=== PATIENT | female | born 1990 | race Two or more races ===

== ENCOUNTER 2025-01-25 20:25 | Emergency (ER) | payer MEDICAID, SELFPAY ==
[2025-01-25 20:26] VITALS: BMI 41.5
[2025-01-25 21:07] VITALS: BP 120/79; PULSE 85; RESP 18; TEMP 37.2; O2SAT 98
--- NOTE | 2025-01-25 21:11 | EDRME_ITS ---
Rapid Medical Screening Exam RME Arrival date/time: 01/25/25 20:25 Chief Complaint: Urogenital-Female Time Seen by Provider: 01/25/25 21:03 Vital signs: Vital Signs Temperature 98.9 F 01/25/25 21:07 Pulse Rate 85 01/25/25 21:07 Respiratory Rate 18 01/25/25 21:07 Blood Pressure 120/79 01/25/25 21:07 Pulse Oximetry (%) 98 01/25/25 21:07 Oxygen Delivery Method Room Air 01/25/25 21:07 [facility] Narrative: Dysuria, lower abdominal pain x 1 week. History of colovesical fistula
[2025-01-25 21:56] LABS: Basophils % (Auto) 0 % (0-2.5); Eosinophils # (Auto) 0.1 Thou/mm3 (0.0-0.5); Eosinophils % (Auto) 1 % (0-10); Hematocrit 33.8 % (36.0-46.0); Hemoglobin 11.5 g/dL (12.0-16.0); Immature Granulocytes % (Auto) 0 % (0-0); Immature Granulocytes Auto 0.02 Thou/mm3 (0.00-0.00); Lymphocytes # (Auto) 2.4 Thou/mm3 (1.0-4.8); Lymphocytes % (Auto) 26 % (10-50); Mean Corpuscular Volume 85 fL (80-100); Monocytes # (Auto) 0.6 Thou/mm3 (0.0-0.8); Monocytes % (Auto) 6 % (0-12); Neutrophils # (Auto) 6.1 Thou/mm3 (1.8-7.7); Neutrophils % (Auto) 66 % (37-80); Nucleated Red Blood Cell % 0 /100 WBC (0); Platelet Count 233 Thou/mm3 (140-440); RDW Standard Deviation 37.2 fL (36.4-46.3); Red Blood Count 3.96 Miln/mm3 (4.00-5.20); White Blood Count 9.2 Thou/mm3 (3.6-11.0)
[2025-01-25 22:05] LABS: Collection Type, Urine Clean Catch
[2025-01-25 22:09] LABS: Bilirubin,Urine Negative (Negative); Blood,Urine 3+ (Negative); Clarity,Urine Clear (Clear/Hazy); Color,Urine Lt-Yellow (Lt Yel-Yel); Glucose, Urine Negative (Negative); Ketones,Urine Negative (Negative); Leukocyte Esterase,Urine Positive (Negative); Nitrite,Urine Negative (Negative); PH,Urine 7.5 (5.0-7.0); Protein,Urine Trace (Neg - Trace); RBC,Urine 191 /hpf (0-3); Specific Gravity,Urine 1.024 (1.001-1.035); Squamous Epithelial Cell,Urine 1 /hpf (0-5); WBC,Urine 99 /hpf (0-5)
[2025-01-25 22:11] LABS: Alanine Aminotransferase < 7 U/L (10-49); Albumin, Serum 4.1 gm/dL (3.5-5.0); Albumin/Globulin Ratio 1.4 (1.2-2.2); Alkaline Phosphatase 80 U/L (46-116); Anion Gap 8 (7-16); Aspartate Amino Transferase 11 U/L (0-34); BUN/Creatinine Ratio 18 Ratio (12-20); Bilirubin,Total 0.4 mg/dL (0.3-1.2); Blood Urea Nitrogen 11 mg/dL (9-23); Calcium 8.7 mg/dL (8.3-10.6); Calcium (Corrected) 8.7 mg/dL (8.5-10.1); Chloride 105 mMol/L (98-107); Creatinine (Component) 0.6 mg/dL (0.6-1.3); Glucose 99 mg/dL (74-106); Lipase 31 U/L (12-53); Osmolality,Calculated 280 (275-295); Potassium 4.2 mMol/L (3.4-5.1); Sodium 141 mMol/L (136-145); Total Protein 7.1 gm/dL (5.7-8.2); eGFR > 60 See Note
[2025-01-25 22:11] LABS: HCG Qualitative,Urine Negative
--- NOTE | 2025-01-25 22:17 | XR_ITS ---
Examination: CT abdomen and pelvis without contrast. Coronal 3-D reconstructions. Sagittal 2-D reconstructions. Date and time of exam:January 26, 2025 0009 hours INDICATIONS: Onset lower abdominal pain today COMPARISON: June 26, 2024 CTDI: vol (mGy): 22.4 DLP: (mGycm): 1306 Technique: Axial images of the abdomen have been obtained, 3 mm slice thickness Intravenous contrast material has not been administered. Low dose protocols were performed. One or more of the following dose reduction techniques were used; automated exposure control, adjustment of the mA and/or KV according to patient size, use of iterative reconstruction technique. 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
--- NOTE | 2025-01-26 01:18 | PRELIM_ITS ---
CT scan of the abdomen and pelvis without intravenous contrast (axial sections with sagittal and coronal reformats). January 26, 2025 at 0009 hours Clinical History: Dysuria, flank pain Comparison: None Findings: Gallbladder is surgically absent. The unenhanced liver, spleen, pancreas, adrenals and kidneys are unremarkable. Follicular changes suggested in the left ovary. There are small moderate free dependent pelvic fluid which may be physiologic. There is circumferential urine bladder wall thickening which may be due to suboptimal distention. There is a urachal remnant extending from the superior aspect of the urinary bladder to the umbilicus, this may represent a urachal sinus. There is underdistention of the stomach which limits evaluation. There is postoperative change in stomach. Small hiatus hernia suggested. There are colonic diverticula without evidence of diverticulitis. Appendix is normal. There is no free intraperitoneal air. There is no abdominal or pelvic lymphadenopathy. Visualized lung bases are clear. There is no acute osseous abnormality. Impression: 1. Possible cystitis. Urachal remnant extending from the superior aspect of the urinary bladder to the umbilicus, this may represent a urachal sinus. Recommend outpatient urology follow-up. 2. Small hiatus hernia. 3. Colonic diverticula without evidence of diverticulitis. Normal appendix. Report Electronically Signed By: Beto Toney 01/26/2025 1:17:48 AM [EST]
--- NOTE | 2025-01-26 02:52 | PD.EDFMALE ---
ED Female Urogenital RME/HPI General Chief complaint: Urogenital-Female Stated complaint: BLADDER PAIN Time Seen by Provider: 01/25/25 21:03 Arrival date/time: 01/25/25 20:25 RME / HPI RME / HPI Narrative: The patient is a 34-year-old female with significant past medical history of multiple episodes of MDR UTI presented to ED with chief complaint of lower abdominal pain, and severe burning pain on micturition with frequency and urgency for about 1 week. The patient saw her PCP yesterday, and was prescribed Macrobid, but she received a call from pharmacy regarding Macrobid being resistant to her urine bug. She evaluated chills, nausea, but denied any headache, lightheadedness, sore throat, chest pain, SOB, any changes in bowel habit, or leg swelling. Related Data Previous Rx's ?Medication ?Instructions ?Recorded tetracycline 500 mg capsule 500 mg PO Q6H Pelvic abscess #40 02/27/22 caps tetracycline 500 mg capsule 500 mg PO Q6H #120 caps 03/09/22 doxycycline hyclate 100 mg capsule 100 mg PO BID #20 caps 07/29/22 ondansetron 4 mg disintegrating 4 mg PO Q8H PRN nausea and 04/29/23 tablet vomiting #10 tabs ciprofloxacin HCl 500 mg tablet 500 mg PO BID #20 tabs 07/15/23 ibuprofen 800 mg tablet 800 mg PO Q8H PRN pain #30 tabs 07/15/23 metronidazole 500 mg tablet 500 mg PO BID #20 tabs 07/15/23 naproxen 500 mg tablet (Naprosyn) 500 mg PO BID PRN pain #30 tabs 01/27/24 ondansetron 4 mg disintegrating 4 mg PO Q6H PRN nausea and 01/27/24 tablet vomiting #10 tabs nitrofurantoin 100 mg PO BID #20 caps 06/27/24 monohydrate/macrocrystals 100 mg capsule (Macrobid) doxycycline hyclate 100 mg tablet 100 mg PO BID #13 tabs 01/26/25 phenazopyridine 100 mg tablet 100 mg PO TID PRN pain #20 tabs 01/26/25 (Pyridium) Allergies Allergy/AdvReac Type Severity Reaction Status Date / Time metronidazole Allergy Intermediate itching Verified 06/26/24 18:32 piperacillin (From Zosyn) Allergy Intermediate Hives Verified 06/26/24 18:32 amoxicillin (From Augmentin) Allergy Verified 06/26/24 18:32 clavulanic acid (From Allergy Verified 06/26/24 18:32 Augmentin) tazobactam (From Zosyn) Allergy Verified 06/26/24 18:32 Review of Systems Review of Systems Systems Reviewed: All systems reviewed, normal except as documented Past Medical History Past Medical History CARDIAC: Negative Cardiac Disorders or Congestive Heart Failure RESPIRATORY: Positive Asthma GASTROINTESTINAL: Positive Gastrointestinal Disorders, Pancreatitis, Gall Bladder Disease, Diverticulitis, Diverticulosis and Obesity; Negative Hepatitis REPRODUCTIVE: Positive Previous Pregnancies ENT: Negative Cataracts ENDOCRINE: Negative Endocrine Disorders, Diabetes Mellitus Type 1 or Diabetes Mellitus Type 2 HEMATOLOGIC: Negative Blood Disorders, Anemia, Leukemia, Hemophilia, Thalassemia, Sickle Cell Disease or Clotting Problems OTHER HISTORY: Positive Hospitalization Family History FAMILY HISTORY: Positive Family Respiratory Disorders Surgical History SURGICAL: Positive Abdominal Surgery Social History SMOKING STATUS: Never smoker SUBSTANCE USE: does not use ED Exam Narrative Physical exam: General: No acute distress, Alert and Oriented x 3 HEENT: Moist mucous membranes, oropharynx clear Neck: Supple, No masses, No JVD CVS: S1S2 Regular rate and rhythm, No murmurs, rubs or gallops Lungs: Clear to auscultation with no accessory use, no wheeze no rhonchi Abd: Soft, severe tenderness over lower abdomen/ND, +BS, no organomegaly Ext: No edema, warm and well perfused Skin: No rash Psych: Appropriate mood and affect Course Quality Measures none Orders Category Date Time Status CT abdomen pelvis wo con Stat Exams 01/25/25 22:17 Taken CBC Stat Lab 01/25/25 21:20 Completed CMP [Comprehensive Metabolic Panel] Stat Lab 01/25/25 21:20 Completed HCG Qualitative,Urine Stat Lab 01/25/25 21:35 Completed Lipase Stat Lab 01/25/25 21:20 Completed UA [Urinalysis] Stat Lab 01/25/25 21:35 Completed Urine Culture Stat Lab 01/25/25 21:35 Received Doxycycline [Vibramycin] Med 01/26/25 02:45 Discontinued 100 mg PO X1 ONE Ketorolac Inj [Toradol Inj] Med 01/26/25 02:27 Discontinued 30 mg IM X1 ONE Phenazopyridine HCl [Pyridium] Med 01/26/25 02:48 Discontinued 100 mg PO X1 ONE Tamsulosin HCl [Flomax] Med 01/26/25 02:18 Discontinued 0.4 mg PO X1 ONE Vital Signs Vital signs: Vital Signs Temperature 98.9 F 01/25/25 21:07 Pulse Rate 85 01/25/25 21:07 Respiratory Rate 18 01/25/25 21:07 Blood Pressure 120/79 01/25/25 21:07 Pulse Oximetry (%) 98 01/25/25 21:07 Oxygen Delivery Method Room Air 01/25/25 21:07 Urogenital - Female MDM Narrative MDM Narrative:: The patient is a 34-year-old female with significant past medical history of multiple episodes of MDR UTI presented to ED with chief complaint of lower abdominal pain, and severe burning pain on micturition with frequency and urgency for about 1 week. The patient saw her PCP yesterday, and was prescribed Macrobid, but she received a call from pharmacy regarding Macrobid being resistant to her urine bug. She evaluated chills, nausea, but denied any headache, lightheadedness, sore throat, chest pain, SOB, any changes in bowel habit, or leg swelling. Her vitals were stable with BP 120/79, pulse 85, RR 18, temperature 98.9, O2 sat 98 patient on room air. Labs revealed hemoglobin 11.5, hematocrit 33.8, white count 9.2, chemistry panel fairly stable with ALT less than 7, lipase 31, UA revealed pH 7.5, blood 3+, RBC 191, WBC 99, leukocyte esterase positive. CT abdomen/pelvis revealed cystitis pattern in prelim read with Urachal remnant extending from the superior aspect of the urinary bladder to the umbilicus, this may represent a urachal sinus. Small hiatus hernia. Colonic diverticula without evidence of diverticulitis. Patient was given ketorolac 30 Mg IM x 1, doxycycline 100 Mg p.o. x 1, phenazopyridine 100 Mg p.o. x 1. The patient was stable to be discharged home. Patient data External records reviewed:: [facility] previous records Clinical information provided by:: patient Social determinants that could affect healthcare access:: none Patient has the following chronic illnesses:: See above How is presenting disease/condition affected by chronic disease/condition?: caused by Evaluation data The following diagnostics were reviewed and interpreted by me:: lab results and radiology exam(s) Lab and/or radiology exams considered but not ordered:: None Interpretation Summary: See above Medications / Prescriptions Medications or Prescriptions considered but not ordered:: Ceftriaxone Medication administrations:: Medication Administration History Discontinued Medications Doxycycline Hyclate (Doxycycline 100 Mg Tablet) 100 mg PO X1 ONE Stop: 01/26/25 02:46 Last Admin: 01/26/25 02:56 Dose: 100 mg Documented By: CVL Ketorolac Tromethamine (Ketorolac Inj 60 Mg/2 Ml Vial) 30 mg IM X1 ONE Stop: 01/26/25 02:28 Last Admin: 01/26/25 02:56 Dose: 30 mg Documented By: CVL Phenazopyridine HCl (Phenazopyridine Hcl 100 Mg Tablet) 100 mg PO X1 ONE Stop: 01/26/25 02:49 Last Admin: 01/26/25 02:56 Dose: 100 mg Documented By: CVL Tamsulosin HCl (Tamsulosin Hcl 0.4 Mg Capsule) 0.4 mg PO X1 ONE Stop: 01/26/25 02:19 Last Admin: 01/26/25 02:53 Dose: Not Given Documented By: SF Non-Admin Reason: Discontinued See above Consultations Consultation(s) initiated? (list below): No Diagnosis Urogenital Female Differential Diagnosis: urinary tract infection, bacterial vaginosis, cervicitis and cystitis Most likely diagnosis given after review of the tests above:: Urinary tract infection Admission Indicated Admission indicated?: not indicated Explain why admission is indicated or not indicated:: Patient's vitals were stable, CBC and CMP stable. Admission Request Was there a request for admission?: No Disposition Plan Disposition Plan: Discharge Discharge Attestation Discharge Attestation: The patient and all family members were given an opportunity to ask questions and understood the discharge instructions. Discharge instructions specifically effects, indications for sooner follow up or return to the emergency department, and the expected course of current diagnosis. Patient condition: Stable Discharge Plan Plan Patient Disposition: HOME (Self Care) Prescriptions/Referrals Prescriptions/Med Rec: New doxycycline hyclate 100 mg tablet 100 mg PO BID Qty: 13 0RF phenazopyridine [Pyridium] 100 mg tablet 100 mg PO TID PRN (Reason: pain) Qty: 20 0RF No Action tetracycline 500 mg capsule 500 mg PO Q6H Qty: 40 0RF tetracycline 500 mg capsule 500 mg PO Q6H Qty: 120 0RF ciprofloxacin HCl 500 mg tablet 500 mg PO BID Qty: 20 0RF metronidazole 500 mg tablet 500 mg PO BID Qty: 20 0RF ibuprofen 800 mg tablet 800 mg PO Q8H PRN (Reason: pain) Qty: 30 0RF doxycycline hyclate 100 mg capsule 100 mg PO BID Qty: 20 0RF ondansetron 4 mg tablet,disintegrating 4 mg PO Q8H PRN (Reason: nausea and vomiting) Qty: 10 0RF ondansetron 4 mg tablet,disintegrating 4 mg PO Q6H PRN (Reason: nausea and vomiting) Qty: 10 0RF naproxen [Naprosyn] 500 mg tablet 500 mg PO BID PRN (Reason: pain) Qty: 30 0RF nitrofurantoin monohyd/m-cryst [Macrobid] 100 mg capsule 100 mg PO BID Qty: 20 0RF Rx Instructions: must administer with a meal/food Referrals: Meagan Melendez PA-C [Primary Care Provider] - In 1 week Problem List Clinical Impression: Urinary tract infection Patient/Caregiver Discharge Instructions Discharge Activity: activity as tolerated Education Materials: Anatomy of the Female Urinary Tract, Urinary Tract Infections in Women, ED CYSTITIS Female Adult Additional Instructions: The patient was discharged by Dr. Reed with the following recommendations: Please follow-up with your PCP within 48 hours of discharge, and request culture results of your urine, and antibiotic prescription accordingly. You have been started on: -Doxycycline 100 Mg twice daily for 7 days -Pyridium 100 Mg up to 3 times a day for pain, and orients to red urine after using this medicine is common and normal. Continue taking all other medicines as prescribed -Recommended to return back to emergency department if your symptoms persists or worsens Print Language: Estonian Stand Alone Forms: Rosemarie Award Info., Patient Portal Info Letter Attestation Attestation I, Dr. Wilkinson, have reviewed the history, exam, and assessment of the patient. I have evaluated the patient independently and agree with the plan of care documented by the resident Dr. Reed. All diagnostic studies were reviewed and discussed. I confirm the diagnosis as documented by the resident. I was present during the Medical Decision Making for this patient. The patient?s plan of care was created between myself and the resident and consistent with our discussion of the patient?s case.
[2025-01-26] MEDS: KETOROLAC INJ 60 MG/2 ML VIAL 30 MG IM (02:56)
[2025-01-26] MEDS: PHENAZOPYRIDINE HCL 100 MG TABLET PO (02:56)
[2025-01-26] MEDS: DOXYCYCLINE 100 MG TABLET PO (02:56)
== END 2025-01-26 03:39 | disposition home or self-care (01) ==
PROVIDERS: Physician Assistant; Emergency Provider Student in an Organized Health Care Education/Training Program; PCP Physician Assistant Medical
DX: N39.0 Urinary tract infection, site not specified (principal)
CPT/HCPCS: 36415; 74176; 80053; 81001; 81025; 83690; 85025; 87086; 96372; 99284; J1885; A9270